=== PATIENT | male | born 1995 | race Caucasian/White ===

== ENCOUNTER 2017-01-25 21:37 | Emergency (ER) | payer SELFPAY ==
[2017-01-25 21:46] VITALS: BP 135/82
[2017-01-25] MEDS ORDERED: DOXYcycline CAP(*) 100 MG PO ONE (21:57)
--- NOTE | 2017-01-25 22:06 | UC ---
Skin Complaint HPI - HPI Summary HPI Summary: YESTERDAY HAD TICK BITE ON UPPER RIGHT LEG, NO FEVER. HOWEVER, DEVELOPING RED AREA AROUND TICK BITE. HAS ALSO HAD SINUS COLD AND SORE THROAT FOR LAST TWO WEEKS. 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 - History of Current Complaint Chief Complaint: UCSkin Time Seen by Provider: 01/25/17 21:43 Stated Complaint: TICK BITE Hx Obtained From: Patient Onset/Duration: Gradual Onset, Lasting Hours Skin Exposure Onset/Duration: Days Ago Onset Severity: Mild Current Severity: Mild Location: Discrete Character: Redness Aggravating Factor(s): Nothing Alleviating Factor(s): Nothing Associated Signs & Symptoms: Positive: Negative Related History: Insect Bite/Sting - Allergy/Home Medications Allergies/Adverse Reactions: Allergies Allergy/AdvReac Type Severity Reaction Status Date / Time No Known Allergies Allergy Verified 01/25/17 21:46 Review of Systems Constitutional: Negative Skin: Rash Eyes: Negative ENT: Sinus Congestion Respiratory: Negative Cardiovascular: Negative Gastrointestinal: Negative Genitourinary: Negative Motor: Negative Neurovascular: Negative Musculoskeletal: Negative Neurological: Negative Psychological: Negative Is Patient Immunocompromised?: No All Other Systems Reviewed And Are Negative: Yes PMH/Surg Hx/FS Hx/Imm Hx Previously Healthy: Yes - Surgical History Surgical History: None - Family History Known Family History: Negative: Blood Disorder - Social History Occupation: Unemployed Lives: With Family Alcohol Use: None Substance Use Type: None Smoking Status (MU): Never Smoked Tobacco Physical Exam Triage Information Reviewed: Yes Appearance: Well-Appearing, No Pain Distress, Well-Nourished, Thin Vital Signs: Initial Vital Signs Temp 99.3 F 01/25/17 21:42 Pulse 101 01/25/17 21:42 Resp 18 01/25/17 21:42 BP 135/82 01/25/17 21:42 Pulse Ox 97 01/25/17 21:42 Vital Signs Reviewed: Yes Eye Exam: Normal ENT: Positive: Hearing grossly normal, Pharyngeal erythema, Nasal congestion, TM dull Dental Exam: Normal Neck exam: Normal Neck: Positive: Supple, Nontender, No Lymphadenopathy Respiratory Exam: Normal Respiratory: Positive: Chest non-tender, Lungs clear, Normal breath sounds, No respiratory distress Cardiovascular Exam: Normal Cardiovascular: Positive: RRR, No Murmur, Pulses Normal Abdominal Exam: Normal Abdomen Description: Positive: Nontender, No Organomegaly Musculoskeletal Exam: Normal Neurological Exam: Normal Psychological Exam: Normal Skin: Positive: rashes - 0.5 CM X 0.5 CM ERYTHEMATOUS RASH RIGHT SUPERIOR POSTERIOLATERAL THIGH Course/Dx - Differential Diagnoses - Skin Complaint Differential Diagnoses: Abscess, Cellulitis, Systemic Illness, Tick Born Illness , Tinea - Diagnoses Provider Diagnoses: TICK BITE PROPHYLAXIS; Discharge - Discharge Plan Condition: Stable Disposition: HOME Prescriptions: DOXYcycline CAP(*) [DOXYcycline 100MG CAP(*)] 100 mg PO BID #10 cap Patient Education Materials: Tick Bite (ED) Referrals: [facility] PHYSICIAN REFERRAL [Outside] Images Front/Back of Body, Lg ([place]): 1 - 0.5 CM X 0.5 CM ERYTHEMATOUS RASH RIGHT SUPERIOR POSTERIOLATERAL THIGH
== END 2017-01-25 22:21 | disposition home or self-care (01) ==
LOC: UCEAST 21:37
DX: S70.361A Insect bite (nonvenomous), right thigh, initial encounter (principal); W57.XXXA Bitten or stung by nonvenomous insect and other nonvenomous arthropods, initial encounter; Y93.9 Activity, unspecified; Y92.9 Unspecified place or not applicable
CPT/HCPCS: 99202; A9270-GY; G0463

== ENCOUNTER 2017-03-06 12:29 | Emergency (ER) | payer BC ==
[2017-03-06 13:46] VITALS: BP 97/54
[2017-03-07 10:15] LABS: Hematocrit 44 % (42-52); Mean Corpuscular HGB Conc 34 g/dl (31-36); Mean Corpuscular Hemoglobin 28 pg (27-31); Mean Corpuscular Volume 84 fL (80-94); Mean Platelet Volume 9 um3 (7.4-10.4); Red Blood Count 5.26 10^6/ul (4.0-5.4); Red Cell Distribution Width 13 % (10.5-15); White Blood Count 9.6 10^3/ul (3.5-10.8)
[2017-03-07 11:55] LABS: Erythrocyte Sed Rate 0 mm/Hr (0-14)
--- NOTE | 2017-03-14 11:29 | UC ---
Andrea Swain Tiffany, scribed for Lourdes Russ DO on 03/06/17 at 1305 . Neck Pain HPI - HPI Summary HPI Summary: This patient is a 21 year old M presenting to [facility] accompanied by female with a chief complaint of left neck pain since this morning. The patient rates the pain 3/10 in severity. Symptoms aggravated by nothing. Symptoms alleviated by nothing. Patient reports swelling and rash on left side of neck, neck stiffness , left neck tenderness, and congestion. He denies sore throat and ear ache. 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 - History of Current Complaint Chief Complaint: UCUpperExtremity Stated Complaint: SWOLLEN GLAND Hx Obtained From: Patient Onset/Duration: Lasting Hours - This morning, Still Present Pain Intensity: 3 Pain Scale Used: 0-10 Numeric Location: Discrete At: - Left neck Aggravating Factors: Nothing Alleviating Factors: Nothing Associated Signs & Symptoms: Positive: Negative - sore throat and ear ache - Allergies/Home Medications Allergies/Adverse Reactions: Allergies Allergy/AdvReac Type Severity Reaction Status Date / Time No Known Allergies Allergy Verified 03/06/17 12:37 Home Medications: Home Medications Ibuprofen TAB* [Advil TAB*] 400 - 600 mg PO PRN 03/06/17 [History] PMH/Surg Hx/FS Hx/Imm Hx - Additional Past Medical History Additional PMH: Lyme disease, 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, opoid abuse, previously been prescribed Subaxone Previously Healthy: No - Surgical History Surgical History: None - Family History Known Family History: Negative: Diabetes, Blood Disorder - Social History Alcohol Use: Rare Substance Use Type: Marijuana Substance Use Comment - Amount & Last Used: DAILY Smoking Status (MU): Never Smoked Tobacco Review Of Systems Skin: Positive: Other - Rash on left side of neck ENT: Positive: Negative - Sore throat, ear ache, Other - Congestion Musculoskeletal: Positive: Other: - Left neck pain, swelling on left side of neck, neck stiffness and left neck tenderness All Other Systems Reviewed And Are Negative: Yes Physical Exam Triage Information Reviewed: Yes Vital Signs: Initial Vital Signs Temp 98.5 F 03/06/17 12:32 Pulse 94 03/06/17 12:32 Resp 16 03/06/17 12:32 BP 154/71 03/06/17 12:32 Pulse Ox 100 03/06/17 12:32 Vital Signs Reviewed: Yes - Additional Comments Appearance: Well-Appearing, No Pain Distress, Well-Nourished Eyes: conjunctiva clear, no discharge ENT: TMs normal, negative tonsillar swelling, negative tonsillar exudate, negative trismus. Neck: Tender lymphadenopathy on left neck, trace lymphatic congestion on left side of neck. There is a small, oval, scaly lesion on the left side of his neck Respiratory/Lung Sounds: Lungs clear, Normal breath sounds, No respiratory distress, No accessory muscle use Cardiovascular: RRR, No murmur Musculoskeletal: Normal Neurological: Alert, muscle tone normal Psychiatric: Normal, age appropriate behavior Skin: Normal, Warm, Dry, Normal color. Neck Pain Course/Dx - Course Course Of Treatment: Medications reviewed this visit. Patient will be discharged with prescription for Terbinafine and follow up from PCP. He will be advised to improve lymphatic flow. The patient is agreeable with this plan. - Differential Dx/Diagnosis Provider Diagnoses: Tinea corporis, Fatigue, Lymphadenopathy Discharge - Discharge Plan Condition: Stable Disposition: HOME Prescriptions: Terbinafine HCl (Topical) [Lamisil At] 1 % EX DAILY #1 tube Patient Education Materials: Tinea Corporis (ED), Lymphadenopathy (ED), Fatigue (ED) Referrals: No Primary Care Phys,NOPCP [Primary Care Provider] - Additional Instructions: WE THINK THE LESION ON YOUR NECK IS RING WORM. WE WILL TRY TREATING YOU FOR RING WORM. HOWEVER, RING WORM LOOKS VERY MUCH LIKE PITYRIASIS ROSEA. TIME WILL TELL. LYME DISEASE IS OFTEN ASSOCIATED WITH LYMPHATIC CONGESTION. WE RECOMMEND THAT YOU DO THINGS TO IMPROVE YOU LYMPHATIC FLOW: DRY BRUSHING GENTLE TRAMPOLINE USE YOGA IMPROVING POSTURE IMPROVING BREATHING YOU WOULD LIKELY BENEFIT FROM OSTEOPATHIC MANIPULATION. WE RECOMMEND THAT YOU FIND AN OSTEOPATHIC PHYSICIAN IN YOUR AREA WHO DOES LYMPHATIC, MYOFACIAL AND VISCERAL WORK. FOLLOW-UP CARE: You should establish with a private physician for follow-up care IN 3-5 DAYS. If you are unable to get a timely appointment, or if you are worsening, call us or return for re-evaluation. An additional resource available to assist in finding the appropriate physician for your health care needs is the [facility]erral Center. You may contact them by calling [phone]. The documentation as recorded by the Andrea jett Tiffany accurately reflects the service I personally performed and the decisions made by me, Lourdes Russ DO.
== END 2017-03-06 13:50 | disposition home or self-care (01) ==
LOC: UCEAST 12:29
DX: B35.4 Tinea corporis (principal); R53.83 Other fatigue; R59.0 Localized enlarged lymph nodes; F12.90 Cannabis use, unspecified, uncomplicated
CPT/HCPCS: 36415; 85025; 85652; 99212; G0463

== ENCOUNTER 2018-08-19 15:32 | Emergency (ER) | payer OTHER ==
[2018-08-19 16:24] VITALS: BP 120/68
[2018-08-19] MEDS ORDERED: Naproxen TAB* 250 MG PO ONE (17:08)
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
== END 2018-08-19 17:57 | disposition home or self-care (01) ==
LOC: UCEAST 15:32
DX: S49.92XA Unspecified injury of left shoulder and upper arm, initial encounter (principal); S60.512A Abrasion of left hand, initial encounter; S60.511A Abrasion of right hand, initial encounter; S70.212A Abrasion, left hip, initial encounter; V13.4XXA Pedal cycle driver injured in collision with car, pick-up truck or van in traffic accident, initial encounter; Y93.55 Activity, bike riding; Y92.9 Unspecified place or not applicable; F41.9 Anxiety disorder, unspecified
CPT/HCPCS: 99212; A9270-GY; G0463